=== PATIENT | female | born 1975 | race Caucasian/White ===

== ENCOUNTER 2019-08-26 02:24 | Inpatient (IN) | payer OTHER ==
[~2019-08-26] VITALS: Ht 162.6 cm; Wt 134.5 kg
[2019-08-26 03:33] VITALS: BP 126/69
[2019-08-26] MEDS ORDERED: OMEPRAZOLE40 MG PO (03:58)
--- NOTE | 2019-08-26 05:45 | NUR ---
RECIEVED PT DIRECT ADMIT FROM [facility] , PT ALERT AND ORIEBTED DATA BASE COMPLETED AND ASSESMENT COMPLETED REDNESS NOTED ON LAFET SIDE OF NECK PT C/O PAIN FROM SITE, DISCUSS PLAN OF CARE PT VERBALIZED UNDERSTANDING.
[2019-08-26 08:08] VITALS: BP 144/90
[2019-08-26 09:02] LABS: URINE BILIRUBIN NEGATIVE (Negative); URINE BLOOD TRACE (Negative); URINE CLARITY CLEAR; URINE COLOR YELLOW; URINE GLUCOSE-RANDOM* NEGATIVE (Negative); URINE KETONES NEGATIVE (Negative); URINE LEUKOCYTES-REFLEX NEGATIVE (Negative); URINE NITRITE-REFLEX NEGATIVE (Negative); URINE PROTEIN (DIPSTICK) NEGATIVE (Negative); URINE SPECIFIC GRAVITY 1.025 (1.005-1.035); URINE UROBILINOGEN 0.2 E.U./dl (0.2-1.0)
[2019-08-26 19:35] VITALS: BP 146/83
--- NOTE | 2019-08-26 20:12 | NUR ---
Received awake on bed. Due medications given as prescribed, able to swallow meds w/o difficulty. On room air. Vital signs stable. A+Ox4. On regular diet- tolerating well; no nausea, no vomiting and no abdominal noted. Pt complaining of pain after shift change- refusing to take [place] since it is causing her to itch, doesnt want to take Fentanyl as well since it is giving her headaches- Dr Arshad informed to change pt's pain medications, orders obtained and given as prescribed. She complained that she needs to see Dr Gracia since he has been seeing patient since last week, cancelled consult for Dr Mercado- Dr Arshad informed re: change of ENT team. Pt seen and examined by Dr Gracia, orders made; with telephone order for CT scan of head and neck but said to hold it off since she just had one done yesterday; to continue monitoring patient. With at the bedside. Continent of bowel and bladder, urine specimen sent. With NS at 100cc/hr, infusing well on her R AC. Pt says that she has a PIPIDA scan scheduled on Wednesday as outpatient tried calling nuclear medicine to ask if it can be changed as inpatient- no one answering from nuclear medicine, rails developer nurse to confirm. Pt complained of hyperacidity this evening, pt cautious about meds to take due to her PIPIDA scan, Dr Arshad informed- a/w reply. Complained of pain, due PRN pain meds given as precribed, as per pt she has better pain relief to Ketorolac compared to her previous pain meds. To continue monitoring patients.
--- NOTE | 2019-08-27 04:48 | NUR ---
Pt. rested quietly at short intervals during the night when checked on during frequent rounds. She c/o indigestion and Lori TALLEY was called and order received for tums (see cpoe). Pt. also c/o nausea and ivp zofran given (see emar) with some relief noted. Pain to her ear is being controlled with iv toradol.
[2019-08-27 06:08] LABS: ABSOLUTE NEUTROPHILS 11.4 thou/uL (1.4-8.2); HEMATOCRIT 38.8 % (37.0-47.0); HEMOGLOBIN 12.7 gm/dL (12.0-15.0); LYMPHOCYTES 7.7 % (24.0-44.0); MCH 28.5 pg (26.0-34.0); MCHC 32.7 g/dL (28.0-37.0); MCV 87.2 fL (80.0-100.0); MONOCYTES 2.8 % (1.0-8.0); PLATELET COUNT 395 thou/uL (150-400); POLYS 89.5 % (36.0-66.0); RBC 4.44 mil/uL (4.20-5.00); RDW 13.5 % (10.5-14.5); WBC 12.7 thou/uL (4.0-11.0)
[2019-08-27 06:17] LABS: CALCIUM 8.6 mg/dL (8.5-10.1); CREATININE 0.7 mg/dL (0.6-1.0); MAGNESIUM 2.1 mg/dL (1.8-2.4); POTASSIUM 4.2 mmol/L (3.5-5.1)
[2019-08-27 07:45] VITALS: BP 131/71
[2019-08-27] MEDS ORDERED: MEDROLDOSEPACK PO (09:24)
[2019-08-27] MEDS ORDERED: AUGMENTIN 875-1 EACH PO (09:24)
[2019-08-27] MEDS ORDERED: HYDROCODON-ACE1 EAC7 PO (09:25)
[2019-08-27 11:36] VITALS: BP 131/71
--- NOTE | 2019-08-27 12:17 | NUR ---
Patient Discharged at 1205 with , son , Discharge Papers, Prescriptions. Patient verbalized an understanding of all Discharge Instructions before signing paperwork. Vital signs stable. POC followed.
== END 2019-08-27 12:05 | disposition home or self-care (01) | DRG 872 ==
LOC: 4W 02:24
PROVIDERS: Nurse Practitioner; ADMIT Hospitalist
DX: A41.9 Sepsis, unspecified organism (principal); L03.211 Cellulitis of face; H66.90 Otitis media, unspecified, unspecified ear; A46 Erysipelas; Z88.6 Allergy status to analgesic agent; Z79.899 Other long term (current) drug therapy
CPT/HCPCS: 10047

== ENCOUNTER → 2019-08-28 | Outpatient (CLI) | payer OTHER ==
[~2019-08-28] MED LIST: AUGMENTIN 875-1 EACH PO; HYDROCODON-ACE1 EAC7 PO; MEDROLDOSEPACK PO; OMEPRAZOLE40 MG PO
== END ==
LOC: NUC
DX: R10.13 Epigastric pain (principal)